=== PATIENT | female | born 1955 | race Caucasian/White ===

== ENCOUNTER 2016-08-11 02:46 | Inpatient (IN) | payer MEDICAID ==
[2016-08-11 03:06] VITALS: BMI 21.5
--- NOTE | 2016-08-11 04:10 | ED PDOC ---
HPI: General Adult Time Seen by Provider: 08/11/16 03:04 Chief Complaint (Nursing): Lower Extremity Problem/Injury Chief Complaint (Provider): b/l leg pain, headache History Per: Patient History/Exam Limitations: no limitations Onset/Duration Of Symptoms: Days Have you had recent travel within the past 21 days to any of the following countries: [place], [place], [place] or [place]?: No Current Symptoms Are (Timing): Still Present Additional Complaint(s): 61yo female with PMHx including substance abuse, chronic pain presents to the ED with c/o b/l leg pain x 3 days. Patient states she is restless because legs are in pain. No fever, injury. Also reports headache x 2 days. 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 Patient supposed to be on methadone program but ran out. Patient has full bottle of tramadol in ED with her and told nurse she is going to take the whole bottle because she is in so much pain. Past Medical History Reviewed: Historical Data, Nursing Documentation, Vital Signs Vital Signs: Last Vital Signs Temp 99.0 F 08/11/16 03:04 Pulse 78 08/11/16 06:45 Resp 16 08/11/16 06:45 BP 126/56 L 08/11/16 06:45 Pulse Ox 99 08/11/16 06:45 - Medical History PMH: Anxiety, Asthma, Depression, HTN, Hyperlipidemia, Chronic Pain Denies: HIV Other PMH: substance abuse - Surgical History Surgical History: Cholecystectomy - Family History Family History: States: Unknown Family Hx - Social History Drugs: Other (hx substance abuse ) - Immunization History Hx Tetanus Toxoid Vaccination: No Hx Influenza Vaccination: No Hx Pneumococcal Vaccination: No - Home Medications Home Medications: Ambulatory Orders Medication Instructions Recorded Amoxicillin [Amoxil 500 mg Cap] 2,000 mg PO ONCE 08/11/16 Bupropion HCl [Wellbutrin Sr] 100 mg PO BID 08/11/16 Clopidogrel [Plavix] 75 mg PO DAILY 08/11/16 Doxazosin [Cardura] 4 mg PO BID 08/11/16 Doxepin HCl [Sinequan] 100 mg PO HS 08/11/16 Furosemide [Lasix] 40 mg PO DAILY 08/11/16 Lisinopril [Zestril] 40 mg PO DAILY 08/11/16 Meclizine [Meclizine*] 25 mg PO TID 08/11/16 Methadone [Methadone HCl] 5 mg PO TID 08/11/16 Montelukast [Singulair] 10 mg PO DAILY 08/11/16 Omeprazole Magnesium [Prilosec Otc] 20 mg PO DAILY 08/11/16 Soy Isofla/Blk Cohosh/Mag Bark 155 mg PO DAILY 08/11/16 [Estroven 155 mg Capsule] Topiramate [Topamax] 25 mg PO BID 08/11/16 Tramadol HCl/Acetaminophen 1 tab PO BID PRN 08/11/16 [Tramadol-Acetaminophn 37.5-325] Valsartan/Hydrochlorothiazide 1 tab PO DAILY 08/11/16 [Valsartan-Hctz 320-25 mg Tab] clonazePAM [clonAZEPAM] 1 mg PO DAILY 08/11/16 - Allergies Allergies/Adverse Reactions: Allergies Allergy/AdvReac Type Severity Reaction Status Date / Time aspirin Allergy RASH Verified 08/11/16 03:08 Review of Systems ROS Statement: Except As Marked, All Systems Reviewed And Found Negative Constitutional: Positive for: Other (no injury ). Negative for: Fever Musculoskeletal: Positive for: Leg Pain (b/l ) Neurological: Positive for: Headache Physical Exam - Reviewed Nursing Documentation Reviewed: Yes Vital Signs Reviewed: Yes - Physical Exam Appears: Positive for: Well, No Acute Distress, Uncomfortable Head Exam: Positive for: ATRAUMATIC, NORMAL INSPECTION, NORMOCEPHALIC Skin: Positive for: Normal Color, Warm, Dry Eye Exam: Positive for: Normal appearance ENT: Positive for: Normal ENT Inspection Neck: Positive for: Normal, Painless ROM, Supple Cardiovascular/Chest: Positive for: Regular Rate, Rhythm. Negative for: Tachycardia Respiratory: Positive for: Normal Breath Sounds. Negative for: Wheezing, Respiratory Distress Gastrointestinal/Abdominal: Positive for: Normal Exam, Bowel Sounds, Soft. Negative for: Tenderness Extremity: Positive for: Normal ROM, Other (no cellulitis, no injury, no redness , moving all extremities ). Negative for: Tenderness, Deformity, Swelling Neurologic/Psych: Positive for: Alert, Oriented - Laboratory Results Result Diagrams: 08/11/16 04:49 08/11/16 04:49 - ECG O2 Sat by Pulse Oximetry: 98 Pulse Ox Interpretation: Normal (RA) Medical Decision Making Medical Decision Makin: Impression: chronic pain Plan: Labs Ativan 2mg IM reassess Vital signs are stable. Labs reviewed. In my opinion there are no current acute medical conditions that contraindicate the placement of this patient in a psychiatric unit. Patient s/o to Dr. Newby at 0700 pending crisis eval. Scribe Attestation: Documented by Hina Murillo acting as a scribe for Austyn Choi MD. Provider Scribe Attestation: All medical record entries made by the Scribe were at my direction and personally dictated by me. I have reviewed the chart and agree that the record accurately reflects my personal performance of the history, physical exam, medical decision making, and the department course for this patient. I have also personally directed, reviewed, and agree with the discharge instructions and disposition. Disposition - Clinical Impression Clinical Impression: Pain of lower extremity - Patient ED Disposition Is Patient to be Admitted: Transfer of Care - Disposition Disposition: Transfer of Care Disposition Time: 07:00 Condition: FAIR Patient Signed Over To: Hu Newby Handoff Comments: pending crisis eval
[2016-08-11 05:03] LABS: ALCOHOL SERUM < 10 mg/dl (0-10); BLOOD UREA NITROGEN 19 mg/dl (7-17); CALCIUM 9.5 mg/dL (8.4-10.2); CARBON DIOXIDE 27 mmol/L (22-30); CHLORIDE 106 mmol/L (98-107); GFR AFRICAN-AMERICAN > 60; GLUCOSE,RANDOM 76 mg/dL (65-105); POTASSIUM 3.7 MMOL/L (3.6-5.0); SODIUM 148 mmol/l (132-148)
[2016-08-11 05:10] LABS: BASO % 0.5 % (0.0-2.0); EOS # 0.1 K/uL (0.0-0.7); EOS % 1.6 % (0.0-4.0); HEMATOCRIT 37.6 % (34.0-47.0); LYMPH # 2.5 K/uL (1.0-4.3); LYMPH % 57.6 % (20.0-40.0); MEAN CELL VOLUME 94.8 fl (81.0-99.0); MEAN CORPUSCULAR HEMOGLOBIN 30.9 pg (27.0-31.0); MEAN CORPUSCULAR HGB CONC 32.6 g/dL (33.0-37.0); MEAN PLATELET VOLUME 8.6 fl (7.2-11.7); MONO # 0.3 K/uL (0.0-0.8); MONO % 6.9 % (0.0-10.0); NEUT # 1.5 K/uL (1.8-7.0); NEUT % 33.4 % (50.0-75.0); NRBC % 0.2 % (0.0-0.0); RED CELL DISTRIBUTION WIDTH 14.2 % (11.5-14.5); WHITE BLOOD COUNT 4.4 K/uL (4.8-10.8)
[2016-08-11 06:56] VITALS: O2SAT 98
--- NOTE | 2016-08-11 07:12 | ED PDOC ---
- Laboratory Results Result Diagrams: 08/11/16 04:49 08/11/16 04:49 - ECG O2 Sat by Pulse Oximetry: 98 Medical Decision Making Medical Decision Makin signed over to me by Kita Choi MD pending crisis Disposition - Clinical Impression Clinical Impression: Leg pain, Depression - POA Present On Arrival: None - Disposition Disposition: Admitted as In-Patient Disposition Time: 11:43 Condition: FAIR Additional Comments - Additional Comments Additional Comments: Scribe Attestation: Documented by Orestes Ellsworth acting as a scribe for Hu Newby MD. Provider Scribe Attestation: All medical record entries made by the Scribe were at my direction and personally dictated by me. I have reviewed the chart and agree that the record accurately reflects my personal performance of the history, physical exam, medical decision making, and the department course for this patient. I have also personally directed, reviewed, and agree with the discharge instructions and disposition.
--- NOTE | 2016-08-11 14:20 | RAD ---
HISTORY: psych screen COMPARISON: No prior. TECHNIQUE: Chest PA and lateral FINDINGS: LUNGS: There is bibasilar atelectasis. There is no focal consolidation. PLEURA: No significant pleural effusion identified. No pneumothorax apparent. CARDIOVASCULAR: Normal. OSSEOUS STRUCTURES: There is mild levoscoliosis in the thoracolumbar spine and multilevel degenerative changes. VISUALIZED UPPER ABDOMEN: Normal. OTHER FINDINGS: None. IMPRESSION: No active pulmonary disease.
[2016-08-11] MEDS ORDERED: Bismuth Subsalicylate 262 mg/15 ml Sus (240 ml) PO PRN (15:07)
[2016-08-11] MEDS ORDERED: Alum-Mag Hydrox-Simethicone Susp (30 mL) PO PRN (15:07)
--- NOTE | 2016-08-11 18:08 | PCM.PSYCH ---
Initial Psychiatric Evaluation - Initial Psychiatric Evaluation Chief Complaint (in patient's own words): admitted to [facility] via emergency room after presentation for complaints of pain Patient's Reaction to Hospitalization: voluntary admitted History of Present Illness and Precipitating Events: presentation for complaints of pain reportedly while in er had bottle of toradol previously prescribed by pmd. reportedly told staff in er that if she did not receive something for pain she would take the bottle of toradol. documentation/history reveal pt was being treated by pain management with methadone and reportedly had run out of methadone approx. 3 days prior to admission. Current Medications: Active Medications Generic Name Dose Route Start Last Admin Trade Name Freq PRN Reason Stop Dose Admin Al Hydrox/Mg Hydrox/Simethicone 30 ml 08/11/16 15:07 Maalox Plus 30 Ml PO Q4 PRN Dyspepsia Bismuth Subsalicylate 524 mg 08/11/16 15:07 Pepto-Bismol PO Q4 PRN Diarrhea Bupropion HCl 150 mg 08/12/16 09:00 Wellbutrin Sr 150 Mg PO DAILY [facility] Clonazepam 0.5 mg 08/11/16 17:00 08/11/16 17:31 Klonopin PO 0.5 mg BID [facility] Administration Lorazepam 0.5 mg 08/11/16 15:07 Ativan PO 08/25/16 15:08 HS PRN Insomnia Lorazepam 0.5 mg 08/11/16 15:07 Ativan PO 08/25/16 15:08 Q6 PRN Anixety/Agitation Lorazepam 1 mg 08/11/16 17:57 Ativan PO Q6 PRN Anxiety Methadone HCl 5 mg 08/11/16 21:00 Methadone PO Q12 [facility] Tramadol HCl 100 mg 08/11/16 15:06 08/11/16 17:34 Ultram PO 100 mg Q6 PRN Administration Pain, severe (8-10) Tramadol HCl 50 mg 08/11/16 15:06 Ultram PO Q6 PRN Pain, moderate (4-7) Past Psychiatric History - Past Psychiatric History History of Abuse: deferred History of ETOH/Drug Use: opiates, benzodiazepines History of Family Illness: deferred Pertinent Medical Hx (Current Medical&Sleep Prob, Allergies): Allergies Allergy/AdvReac Type Severity Reaction Status Date / Time aspirin Allergy RASH Verified 08/11/16 03:08 Amoxicillin [Amoxil 500 mg Cap] 2,000 mg PO ONCE 08/11/16 Bupropion HCl [Wellbutrin Sr] 100 mg PO BID 08/11/16 Clopidogrel [Plavix] 75 mg PO DAILY 08/11/16 Doxazosin [Cardura] 4 mg PO BID 08/11/16 Doxepin HCl [Sinequan] 100 mg PO HS 08/11/16 Furosemide [Lasix] 40 mg PO DAILY 08/11/16 Lisinopril [Zestril] 40 mg PO DAILY 08/11/16 Meclizine [Meclizine*] 25 mg PO TID 08/11/16 Methadone [Methadone HCl] 5 mg PO TID 08/11/16 Montelukast [Singulair] 10 mg PO DAILY 08/11/16 Omeprazole Magnesium [Prilosec Otc] 20 mg PO DAILY 08/11/16 Soy Isofla/Blk Cohosh/Mag Bark [Estroven 155 mg Capsule] 155 mg PO DAILY Topiramate [Topamax] 25 mg PO BID 08/11/16 Tramadol HCl/Acetaminophen [Tramadol-Acetaminophn 37.5-325] 1 tab PO BID PRN 08/24 Valsartan/Hydrochlorothiazide [Valsartan-Hctz 320-25 mg Tab] 1 tab PO DAILY 08/24 clonazePAM [clonAZEPAM] 1 mg PO DAILY 08/11/16 Review of Systems - Musculoskeletal Musculoskeletal: Back Pain Additional comments: leg pain - Psychiatric Psychiatric: Depression, Suicidal Ideation Mental Status Examination - Personal Presentation Personal Presentation: Looks stated age - Affect Affect: Constricted - Motor Activity Motor Activity: Calm, Psychomotor Retardation - Reliability in Providing Information Reliability in Providing Information: Fair - Mood Mood: Depressed - Formal Thought Process Formal Thought Process: No Impairment - Obsessions/Compulsions Obsessions: No Compulsions: No - Cognitive Functions Orientation: Person, Place, Situation, Time Sensorium: Alert Attention/Concentration: Attentive Judgement: Imparied, as evidence by: Other - Risk Risk: Suicidal - Strength & Assets Inventory Strength & Assets Inventory: Cooperative DSM 5 DX - DSM 5 DSM 5 Diagnosis: 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
--- NOTE | 2016-08-11 19:55 | CARD ---
APPROVED REPORT EKG Measurement Heart [id number] [id number] <Conclusion> Normal sinus rhythm Nonspecific T wave abnormality Abnormal ECG
[2016-08-11] MEDS: Sucralfate 1 gm/10 ml Oral Susp UD PO PRN (21:15)
[2016-08-12] MEDS: buPROPion SR 150 MG TABLET PO SCH (08:43)
[2016-08-12] MEDS: Pantoprazole 40 mg EC Tab PO SCH (08:43)
[2016-08-12] MEDS: Multiple Vitamins Oral Solution PO SCH (08:44)
[2016-08-12 10:51] LABS: CHOLESTEROL 196 mg/dL (0-199)
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
[2016-08-12 14:44] LABS: IRON 109 ug/dL (37-170)
[2016-08-12 15:44] LABS: THYROID STIMULATING HORMONE 1.65 mIU/ML (0.46-4.68)
[2016-08-12 15:51] LABS: T4 7.82 ug/dl (5.5-11.0)
[2016-08-12 17:32] LABS: FOLATE > 20.0 ng/mL
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
[2016-08-13] MEDS: buPROPion SR 150 MG TABLET PO SCH (09:08)
[2016-08-13] MEDS: Pantoprazole 40 mg EC Tab PO SCH (09:08)
[2016-08-13] MEDS: Multiple Vitamins Oral Solution PO SCH (09:09)
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
[2016-08-13] MEDS: ESTROVEN PO SCH (18:14)
[2016-08-13] MEDS: Sucralfate 1 gm/10 ml Oral Susp UD PO PRN (21:17)
[2016-08-14] MEDS: Multiple Vitamins Oral Solution PO SCH (08:29)
[2016-08-14] MEDS: ESTROVEN PO SCH (08:30)
[2016-08-14] MEDS: buPROPion SR 150 MG TABLET PO SCH (08:31)
[2016-08-14] MEDS: Pantoprazole 20 mg EC Tab PO SCH ×2 (08:31→17:17)
[2016-08-14] MEDS ORDERED: SOY ISOFLA PO SCH (13:00)
[2016-08-14] MEDS ORDERED: BLK COHOSH PO SCH (13:00)
[2016-08-14] MEDS ORDERED: MAG BARK PO SCH (13:00)
--- NOTE | 2016-08-14 19:22 | CARD ---
APPROVED REPORT EKG Measurement Heart [id number] 170P-4 [id number] <Conclusion> Normal sinus rhythm Nonspecific T wave abnormality Abnormal ECG
[2016-08-14] MEDS: Sucralfate 1 gm/10 ml Oral Susp UD PO PRN (21:22)
--- NOTE | 2016-08-14 21:22 | PCM.PYCHPN ---
Psychiatric Progress Note - Psychiatric Progress Note Patient seen today, length of contact: chart reviewed case discussed with team Patient Chief Complaint: seen laying bed, pain fairly controlled , staff report pt periodically noted to be ambulating in unit with use of walker. staff report is adherent with medications. earlier today pt was reportedly agitated yelling at nurse's station -did not respond to verbal redirection, required the calling of security and the administration of prn medications. reports did not respond to pamelor- previously taking elavil 50mg po hs at home. per staff pt reportedly pt was making verbal threats towards staff. Problems Identified/Issues Discussed: alteration in mood alteration in pain control alteration in level of function Medical Problems: per chart Diagnostic Results: per psychiatry per medicine per nursing per social work per recreational therapy per pain management Medication Change: Yes (start elavil 50mg po hs) Medical Record Reviewed: Yes Mental Status Examination - Cognitive Function Orientation: Person, Place, Situation, Time Attention: WNL Concentration: WNL Association: WNL Fund of Knowledge: WN Decription of patient's judgement and insights: impaired - Mood Mood: Depressed - Affect Affect: Constricted - Speech Speech: Loud - Formal Thought Process Formal Thought Process: No Impairment - Homicidal Ideation Homicidal Ideation: Yes Plan: pt made verbal threats towards staff today, pt also has made reported verbal threats toward [place] police department. is reportedly keeping journal but defers to allow staff to view journal. Goal/Treatment Plan - Goal/Treatment Plan Need for Continued Stay: Remain at risks for inpatient hospitalization, Failed transitioning, Severe functional impairment Progress Toward Problem(s) and Goals/Treatment Plan: inpt admission per attending md vital signs and clinical observation per protocol and clinical status pt has been seen by pain management= adjust medications per statu-methadone being adjusted team to access on going basis any thoughts desires to harm others-duty to warn might night need to be considered if thoughts desires remain discharge planning in progress Estimated Date of D/C: 08/18/16 - Smoking Cessation Smoking Cessation Initiated: No Reason for not providing: defers
[2016-08-14] MEDS ORDERED: Magnesium Hydroxide Susp 30 ml UD PO PRN (21:26)
[2016-08-15] MEDS: Pantoprazole 20 mg EC Tab PO SCH ×2 (09:28→17:56)
[2016-08-15] MEDS: ESTROVEN PO SCH (09:28)
[2016-08-15] MEDS: Fluticasone-Salmeterol 100-50mcg Diskus IH SCH ×2 (09:29→21:05)
[2016-08-15] MEDS: buPROPion SR 150 MG TABLET PO SCH (09:30)
[2016-08-15] MEDS: Multiple Vitamins Oral Solution PO SCH (09:33)
--- NOTE | 2016-08-15 12:50 | PCM.PYCHPN ---
Psychiatric Progress Note - Psychiatric Progress Note Patient seen today, length of contact: with german speaking staff Patient Chief Complaint: i don't like the staff here Problems Identified/Issues Discussed: pt irritable. c/o staff. told this headline writer that she would hurt the staff if she could. she is reporting she feels the same as when she came here. no c/o side effects with elavil initiation. Medication Change: Yes (start elavil 50mg po hs) Medical Record Reviewed: Yes Mental Status Examination - Cognitive Function Orientation: Person, Place, Situation, Time Attention: WNL Concentration: WNL Association: WNL Fund of Knowledge: [facility] Decription of patient's judgement and insights: poor - Mood Mood: Depressed - Affect Affect: Constricted - Speech Speech: Loud - Formal Thought Process Formal Thought Process: Paranoia (expressing paranoid thoughts regarding staff) - Suicidal Ideation Suicidal Ideation: No - Homicidal Ideation Homicidal Ideation: Yes Plan: denies intent but reports thoughts to hit staff out of frustration. Goal/Treatment Plan - Goal/Treatment Plan Need for Continued Stay: Remain at risks for inpatient hospitalization, Failed transitioning, Severe functional impairment Progress Toward Problem(s) and Goals/Treatment Plan: mdd recurrent needs further assessment and stabilization t/c added abilify to help stabilize mood/behaviors Estimated Date of D/C: 08/18/16
[2016-08-15] MEDS: Sucralfate 1 gm/10 ml Oral Susp UD PO PRN ×2 (13:23→17:55)
[2016-08-15] MEDS: Lactulose 10 gm/15 ml Syrup PO PRN (21:18)
[2016-08-16 06:31] VITALS: RESP 20
[2016-08-16] MEDS: Fluticasone-Salmeterol 100-50mcg Diskus IH SCH ×2 (08:58→21:42)
[2016-08-16] MEDS: Multiple Vitamins Oral Solution PO SCH (09:00)
[2016-08-16] MEDS: ESTROVEN PO SCH (09:01)
[2016-08-16] MEDS: Pantoprazole 20 mg EC Tab PO SCH ×2 (09:01→16:20)
[2016-08-16] MEDS: buPROPion SR 150 MG TABLET PO SCH (09:02)
[2016-08-16] MEDS: Lactulose 10 gm/15 ml Syrup PO PRN (13:17)
--- NOTE | 2016-08-16 13:51 | PCM.PYCHPN ---
Psychiatric Progress Note - Psychiatric Progress Note Patient seen today, length of contact: with norwegian speaking staff Patient Chief Complaint: i am not happy Problems Identified/Issues Discussed: pt remains irritable and focused on pain. no aggression. Medication Change: No ( ) Medical Record Reviewed: Yes Mental Status Examination - Cognitive Function Orientation: Person, Place, Situation, Time Attention: WNL Concentration: WNL Association: WNL Fund of Knowledge: [facility] Decription of patient's judgement and insights: fair - Mood Mood: Depressed - Affect Affect: Constricted - Speech Speech: Loud - Formal Thought Process Formal Thought Process: Paranoia (expressing paranoid thoughts regarding staff) - Suicidal Ideation Suicidal Ideation: No - Homicidal Ideation Homicidal Ideation: Yes Goal/Treatment Plan - Goal/Treatment Plan Need for Continued Stay: Remain at risks for inpatient hospitalization, Failed transitioning, Severe functional impairment Progress Toward Problem(s) and Goals/Treatment Plan: mdd recurrent needs further assessment and stabilization t/c adding abilify to help stabilize mood/behaviors Estimated Date of D/C: 08/18/16
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
[2016-08-16] MEDS: Sucralfate 1 gm/10 ml Oral Susp UD PO PRN (21:45)
[2016-08-17] MEDS: Fluticasone-Salmeterol 100-50mcg Diskus IH SCH (08:43)
[2016-08-17] MEDS: Multiple Vitamins Oral Solution PO SCH (08:44)
[2016-08-17] MEDS: Pantoprazole 20 mg EC Tab PO SCH ×2 (08:44→17:26)
[2016-08-17] MEDS: buPROPion SR 150 MG TABLET PO SCH (08:44)
[2016-08-17] MEDS: ESTROVEN PO SCH ×2 (09:20→17:29)
--- NOTE | 2016-08-17 15:33 | PCM.PYCHDC ---
Mental Status Examination - Mental Status Examination Orientation: Person, Place, Situation, Time Memory: Intact Mood: Neutral Affect: Broad Speech: Appropriate Attention: WNL Concentration: WNL Association: WNL Fund of Knowledge: WNL Formal Thought Process: No Impairment Description of patient's judgement and insight: Poor insight/judgment Psychotic Thoughts and Behaviors: NO AH/VH/paranoia Suicidal Ideation: No Current Homicidal Ideation?: No Discharge Summary - Discharge Note Reason for Hospitalization: 61 yo woman w/ multiple co-morbidities is admitted for suicidal ideations. Patient has multi-factorial leg pain that has been difficult to manage. At one time, she was being treated by Dr. Maier with injections and then Methadone. She states that she was on 20mg q8h for about 10 years. However, [facility] discharged her at one time and she has been under other physicians for the management of her pain, with medications like Percocet and Tramadol. Drug montioring program revealed one last Methadone prescription from Dr. Maier last year. She's complaining of bilateral burning and constant leg pain, 10/10 on average. She denies illicit drug use currently. Consultations:: List each consultation separately and include: 1. Reason for request. 2. Findings. 3. Follow-up Consultations: Pain management, Medicine consult Summary of Hospital Course include:: 1. Description of specific treatment plan utilized for patients during their course of treatmen. 2. Summarize the time- course for resolution of acute symptoms and/or regressed behaviors. 3. Describe issues identified and worked on during hospitalization. 4. Describe medication utilized. 5. Describe medical problems identified and treated. 6. Reassessment of suicide risk Summary of Hospital Course: Patient admitted to the hospital. She was continued on Elavil and the Wellbutrin was increased to 150 mg PO BID. She was started on Methodone as per medicine consult recommendations. The Klonopin was tapered to 0.5 mg PO BID. Throughout the hospitalization, the patient has been hostile towards staff, verbally threatening, throwing objects and staff and starting verbal arguments. It seems that the patient has a severe personality disorder and active substance abuse problem. - Final Diagnosis (DSM 5) Condition upon Discharge: FAIR DSM 5: Major Depressive Disorder, Opioid dependence; Rule out borderline personality disorder Disposition: HOME/ ROUTINE Follow-up Treatment Plan: Outpatient psychiatric follow-up Prescriptions/Medication Reconciliation: Fluticasone/Salmeterol 100/50 [Advair Diskus 100/50] 1 puff IH Q12 #1 puff Amitriptyline [Elavil] 50 mg PO HS #14 tab clonazePAM [Klonopin] 0.5 mg PO BID #28 tab buPROPion SR [Wellbutrin SR 150 MG] 150 mg PO DAILY #14 tab - Smoking Cessation Smoking Cessation Medication prescribed: No Reason for not providing: Not indicated - Antipsychotic Medications Pt discharged on 2 or more routine antipsychotic medications: No
[2016-08-17 17:06] VITALS: BP 126/59; PULSE 81; TEMP 97.7
== END 2016-08-17 19:00 | disposition home or self-care (01) | DRG 426 ==
LOC: H.ER 02:46 → H.ERHOLD 11:42 → H.PSYCH 13:41 → H.STEP 15:18
PROVIDERS: ADMIT Psychiatry & Neurology Psychiatry; ATTEND Psychiatry & Neurology Psychiatry
PROC: GZHZZZZ Group Psychotherapy (ICD-10-PCS; principal; 2016-08-11)
DX: F32.9 Major depressive disorder, single episode, unspecified (principal); F11.20 Opioid dependence, uncomplicated; R45.851 Suicidal ideations; I10 Essential (primary) hypertension; E78.5 Hyperlipidemia, unspecified; G89.29 Other chronic pain; J45.909 Unspecified asthma, uncomplicated; F41.9 Anxiety disorder, unspecified; Z88.6 Allergy status to analgesic agent; E66.9 Obesity, unspecified; Z68.30 Body mass index [BMI] 30.0-30.9, adult; I73.9 Peripheral vascular disease, unspecified